=== PATIENT | male | born 1975 | race Two or more races ===

== ENCOUNTER 2017-02-19 08:34 | Emergency (ER) | payer MEDICAID ==
[~2017-02-19] VITALS: Ht 195.6 cm; Wt 98.0 kg
[2017-02-19 09:04] VITALS: BP 117/68
[2017-02-19] MEDS ORDERED: IBUP-2028 PO (09:08)
[2017-02-19] MEDS ORDERED: CLIN300C11 PO (09:08)
== END 2017-02-19 14:51 | disposition left against medical advice (07) ==
LOC: ER 09:04
DX: Z53.21 Procedure and treatment not carried out due to patient leaving prior to being seen by health care provider (principal)